=== PATIENT | male | born 1960 | race Caucasian/White ===

== ENCOUNTER 2024-04-05 06:40 | Day surgery (SDC) | payer MEDICAID, SELFPAY ==
[2024-04-04 13:49] VITALS: BMI 27.8
[2024-04-05] VITALS (10 sets, daily range): BP systolic 105–152; BP diastolic 75–103; PULSE 63–76; RESP 12–19; TEMP 36.9–37.1; O2SAT 97–100; BMI 28.4
[2024-04-05] MEDS: DiphenhydrAMINE INJ 50 MG/ML VIAL 25 MG IV (08:01)
[2024-04-05] MEDS: fentaNYL CIT INJ 50 mCg/ML AMP 2ML (ASD USE ONLY) IV (08:02)
[2024-04-05] MEDS: MIDAZOLAM INJ 1 MG/ML VIAL 2 ML (ASD USE ONLY) 2 MG IV (08:02)
== END 2024-04-05 09:06 | disposition home or self-care (01) ==
PROVIDERS: PCP Family Medicine; Referring Provider Surgery; Visit Provider Surgery
PROC: 0DBE8ZX Excision of Large Intestine, Via Natural or Artificial Opening Endoscopic, Diagnostic (ICD-10-PCS; CPT 45380; principal; 2024-04-05 08:30)
DX: Z12.11 Encounter for screening for malignant neoplasm of colon (principal); D12.2 Benign neoplasm of ascending colon
CPT/HCPCS: 45385; J1200; J2250; J3010